=== PATIENT | male | born 1950 | race African-American/Black ===

== ENCOUNTER 2017-08-17 17:19 | Observation (INO) ==
[2017-08-17] MEDS ORDERED: SODIUM CHLORIDE 0.9% 1,000 ML IV STA (17:25)
[2017-08-17 17:49] LABS: Basophils % 0.3 % (0.0-0.8); Eosinophils # 0.1 10*3/uL (0.0-0.87); Eosinophils % 0.8 % (0.00-10.9); Hematocrit 37.2 VOL% (42.0-52.0); Hemoglobin 11.8 GM/DL (14.0-18.0); Immature Granulocytes % 1.8 %; Immature Granulocytes Absolute 0.28 #; Lymphocytes # 2.8 10*3/uL (1.4-4.0); Lymphocytes % 18.5 % (21.2-54.2); Mean Corpuscular HGB Conc 31.7 GM/DL (32-36); Mean Corpuscular Hemoglobin 28 PG (27-34); Mean Corpuscular Volume 86.9 FL (87-102); Mean Platelet Volume 11.3 FL (9.6-12.0); Monocytes # 0.5 10*3/uL (0.11-0.8); Monocytes % 3.5 % (1.7-12.7); Neutrophils # 11.5 10*3/uL (1.4-7.4); Neutrophils % 75.1 % (38.7-73.9); Platelet Count 193 T/CUMM (130-400); Red Blood Count 4.28 MC/CUMM (3.8-5.5); Red Cell Distribution Width 13.2 % (9.3-17.3); White Blood Count 15.3 T/CUMM (4-12)
[2017-08-17] MEDS ORDERED: LIDOCAINE 1%/EPI INJ 20 ML VIAL ONE (17:52)
[2017-08-17 17:57] LABS: INR 1.1; Partial Thromboplastin Time 25.3 SECS (0-40)
[2017-08-17 18:08] LABS: Alanine Aminotransferase 38 U/L (16-61); Albumin 3.4 G/DL (3.4-5.0); Alkaline Phosphatase 124 U/L (45-117); Amylase 91 U/L (25-115); Aspartate Amino Transferase 40 U/L (0-37); Bilirubin,Total < 0.39 MG/DL (0.2-1.0); Blood Urea Nitrogen 14 MG/DL (7-18); Calcium 8.4 MG/DL (8.5-10.1); Glucose 130 MG/DL (74-106); Osmolality,Calculated 281.4 MOS/KG (273-304); Potassium 3.7 MMOL/L (3.5-5.1); Sodium 140 MMOL/L (136-145); Total Protein 7.5 G/DL (6.4-8.3)
[2017-08-17 18:09] LABS: Lactic Acid 2.9 MMOL/L (0.4-2.0)
[2017-08-17 18:18] LABS: Lymphocytes 16 % (20-55); Segmented Neutrophils 79 % (50-85); Total Cells Counted 100
[2017-08-17 18:19] LABS: Platelet Estimate Adequate
[2017-08-17 18:52] LABS: Apearance,Urine Slightly Hazy (Clear); Bacteria,Urine Occasional /HPF (Few); Bilirubin,Urine Negative (Negative); Blood, Urine Moderate mg/dL (Negative); Glucose,Urine (UA) Negative (Negative); Hyaline Casts,Urine 3 /LPF (0-3); Ketones,Urine Negative (Negative); Mucus,Urine Many /LPF (Occasional); Nitrite,Urine Negative (Negative); Protein,Urine 30 MG/DL; RBC,Urine 1 /HPF (0-4); Squamous Epithelial Cell,Urine Occasional /HPF (0-10); Urine Color Yellow (Yellow); Urine Specific Gravity 1.016 (1.001-1.035); WBC,Urine 1 /HPF (0-6)
[2017-08-17] MEDS ORDERED: ACETAMINOPHEN 325 MG TABLET PO PRN (21:43)
[2017-08-17] MEDS ORDERED: PROMETHAZINE 25 MG/1 ML VIAL IM PRN (21:43)
[2017-08-17] MEDS ORDERED: MORPHINE 4 MG/1 ML VIAL IV PRN (21:43)
[2017-08-17] MEDS ORDERED: [UNRECOGNIZED DRUG - REMARK] PO SCH (21:43)
[2017-08-17] MEDS ORDERED: ONDANSETRON 4 MG/2 ML VIAL IV PRN (21:43)
[2017-08-17] MEDS: LACTATED RINGERS 1,000 ML IV SCH (22:03)
[2017-08-17] MEDS ORDERED: PHENYTOIN ER 100 MG CAPSULE PO SCH (23:00)
[2017-08-18] MEDS: LACTATED RINGERS 1,000 ML IV SCH (06:05)
[2017-08-18 08:36] LABS: Basophils % 0.2 % (0.0-0.8); Eosinophils # 0.1 10*3/uL (0.0-0.87); Eosinophils % 0.7 % (0.00-10.9); Hemoglobin 11.9 GM/DL (14.0-18.0); Immature Granulocytes % 0.5 %; Immature Granulocytes Absolute 0.08 #; Lymphocytes # 0.9 10*3/uL (1.4-4.0); Lymphocytes % 6.3 % (21.2-54.2); Mean Corpuscular HGB Conc 33.1 GM/DL (32-36); Mean Corpuscular Hemoglobin 28 PG (27-34); Mean Corpuscular Volume 83.1 FL (87-102); Mean Platelet Volume 11.8 FL (9.6-12.0); Monocytes # 0.5 10*3/uL (0.11-0.8); Monocytes % 3.5 % (1.7-12.7); Neutrophils # 13.1 10*3/uL (1.4-7.4); Neutrophils % 88.8 % (38.7-73.9); Platelet Count 157 T/CUMM (130-400); Red Blood Count 4.33 MC/CUMM (3.8-5.5); Red Cell Distribution Width 13.2 % (9.3-17.3); White Blood Count 14.8 T/CUMM (4-12)
[2017-08-18] MEDS ORDERED: PANTOPRAZOLE 40 MG TABLET PO SCH (09:00)
[2017-08-18 09:02] LABS: Calcium 8.1 MG/DL (8.5-10.1); Osmolality,Calculated 279.4 MOS/KG (273-304); Potassium 3.6 MMOL/L (3.5-5.1)
[2017-08-18 11:11] VITALS: BP 137/79
[2017-08-18] MEDS ORDERED: ENOXAPARIN 40 MG/0.4 ML SYRINGE SUBCUT SCH (20:00)
== END 2017-08-18 13:58 | disposition home or self-care (01) ==
LOC: N.ED 17:19 → N.EDINP 17:19 → N.3E 20:33
PROVIDERS: ADMIT Surgery; ATTEND Surgery